=== PATIENT | male | born 1985 | race Caucasian/White ===

== ENCOUNTER 2018-02-28 10:50 | Emergency (ER) | END 2018-02-28 12:52 | disposition home or self-care (01) ==

== ENCOUNTER 2018-06-11 12:37 | Emergency (ER) | END 2018-06-11 14:52 | disposition home or self-care (01) ==

== ENCOUNTER 2018-06-13 15:18 | Emergency (ER) | END 2018-06-13 16:42 | disposition home or self-care (01) ==

== ENCOUNTER 2018-06-22 10:43 | Emergency (ER) | END 2018-06-22 11:26 | disposition home or self-care (01) ==